=== PATIENT | male | born 1930 | race Caucasian/White ===

== ENCOUNTER → 2017-02-16 | Outpatient (CLI) | payer MEDICARE ==
--- NOTE | 2017-02-16 12:40 | XR ---
EXAMINATION TYPE: XR chest 2V DATE OF EXAM: 02/16/2017 9:59 AM COMPARISON: NONE HISTORY: Shortness of breath TECHNIQUE: Frontal and lateral views of the chest are obtained. FINDINGS: Scattered senescent parenchymal changes noted. Hyperinflation compatible with COPD. No evidence for infiltrate. No evidence for atelectasis. Heart size is stable. Mediastinal structures are stable and grossly unremarkable. No evidence for hilar prominence. Degenerative changes dorsal spine. IMPRESSION: 1. No evidence for acute pulmonary disease.
== END ==
LOC: RADXRMAIN 09:44
PROVIDERS: ATTEND Physician Assistant
DX: B34.9 Viral infection, unspecified (principal)
CPT/HCPCS: 71020

== ENCOUNTER → 2017-02-28 | Outpatient (CLI) | payer MEDICARE ==
--- NOTE | 2017-02-28 10:49 | XR ---
EXAMINATION TYPE: XR chest 2V DATE OF EXAM: 02/28/2017 10:42 AM COMPARISON: 02/16/2017 TECHNIQUE: PA and lateral views submitted. HISTORY: Cough and congestion FINDINGS: The lungs are clear and there is no pneumothorax, pleural effusion, or focal pneumonia. Arthropathy of the left shoulder and postsurgical change right shoulder. Hyperinflation suggests COPD. Linear ch anges at the lung bases suggestive of scar or atelectasis. IMPRESSION: 1. No acute process.
== END | disposition home or self-care (01) ==
LOC: RADXRMAIN 10:24
PROVIDERS: ATTEND Physician Assistant
DX: J20.9 Acute bronchitis, unspecified (principal)
CPT/HCPCS: 71020

== ENCOUNTER → 2017-05-23 | Outpatient (CLI) | payer MEDICARE ==
--- NOTE | 2017-05-23 12:14 | FL ---
EXAMINATION: Cervical and Thoracic Esophagram DATE OF EXAM: 05/23/2017 CLINICAL INDICATION: 86-year-old male with a dysphagia, trouble swallowing at night when supine. Hist ory of acid reflux. COMPARISON: None Total Fluoroscopy Time: 2 minutes 30 seconds Total images: 49 FINDINGS: Multilevel spondylitic change within the cervical spine with grade 1 anterolistheses at C3-C4 and C5- C6 and nearly grade 2 anterolisthesis at C4-C5. Towards the end of the study when the cervical esophagus is again examined, mild aspiration is eviden t with contrast layering along the anterior tracheal wall just below the vocal folds. This is suspect ed to have occurred when the patient was drinking prone. Otherwise, the swallowing mechanism is normal and hypopharyngeal anatomy is preserved. The cervical and thoracic portions have a normal course and caliber. However, assessment of motility shows moderate tertiary peristaltic contractions and blunting secondary peristaltic waves. The mucosa is normal and no persistent filling defect is encountered. There is no fixed narrowing. There is a moderate-sized hiatal hernia with moderate gastroesophageal reflux to the midthoracic leve l when the patient performs self outlining the supine position. IMPRESSION: 1. Mild aspiration suspected to have occurred when the patient was drinking in the prone position. If indicated, speech pathology consultation with a modified swallow study could further evaluate the sw allowing mechanism. 2. Presbyesophagus. 3. Moderate-sized hiatal hernia and moderate gastroesophageal reflux. 4. No evidence stricture or suspicious mucosal lesion. 5. Multilevel spondylotic change within the cervical spine with multilevel anterolistheses, nearly gr marilu 2 at C4-C5.
== END ==
LOC: RADFLWHC 10:41
PROVIDERS: ATTEND Otolaryngology
DX: K22.8 Other specified diseases of esophagus (principal); K44.9 Diaphragmatic hernia without obstruction or gangrene; K21.9 Gastro-esophageal reflux disease without esophagitis
CPT/HCPCS: 74220

== ENCOUNTER 2017-07-27 10:59 | Day surgery (SDC) | payer MEDICARE ==
[2017-07-26 11:17] VITALS: BMI 27.9
[~2017-07-27 10:59] MED LIST: LACTATED RINGERS 1,000 ML IV SCH
[2017-07-27] MEDS ORDERED: LIDOCAINE 1% 20 ML VIAL (10MG/ML) FOR IV START INTRADERMA ONE (12:57)
[2017-07-27 13:02] LABS: Glucose,Whole Blood 89 mg/dL (75-99)
[2017-07-27] MEDS ORDERED: PROPOFOL 10 MG/ML 20 ML VIAL IV ONE (13:42)
--- NOTE | 2017-07-27 13:54 | P.PCN ---
Date of Procedure: 07/27/17 Preoperative Diagnosis: Postoperative Diagnosis: Procedure(s) Performed: BRIEF HISTORY: Patient is a 86-year-old, pleasant, white male, scheduled for an upper endoscopy as a part of evaluation of intermittent dysphagia that happens at night. He can't swallow his own saliva or secretions. He feels like his choking and wakes her from sleep. He denies any dysphagia with foods. He was evaluated by Dr. Jerry and nasal pharyngoscopy was normal. PROCEDURE PERFORMED: Esophagogastroduodenoscopy with biopsy PREOPERATIVE DIAGNOSIS: Intermittent dysphagia to solids IV sedation per anesthesia. PROCEDURE: After informed consent was obtained, the patient was brought into the endoscopy unit. IV sedation was administered by Anesthesia under continuous monitoring. Initially the Olympus GIF-140 video endoscope was inserted into the mouth. Esophagus intubated without any difficulty. It was gradually advanced into the stomach and duodenum and carefully examined. The bulb and the second part of the duodenum appeared normal. Along the duodenal sweep there was a 3 cm submucosal polyp identified and biopsies were done from this area and this the represents a lipoma as the pillow sign was positive. The scope at this time was withdrawn to the stomach, adequately insufflated with air, and upon careful examination, mucosa of the antrum, body, cardia and the fundus appeared normal. Small polyps were noted in the fundus of the stomach which were biopsied. The scope was then withdrawn into the esophagus. Small hiatal hernia noted. The GE junction was located at 36 cm from the incisors. The esophagus appeared normal. There were no erosions or ulcerations seen and the patient tolerated the procedure well. IMPRESSION: 1. Small hiatal hernia. 2. Normal-appearing esophagus with no evidence of esophagitis or esophageal stricture. 3. Small gastric polyps status post biopsy 4. 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 Status post biopsies RECOMMENDATIONS: The findings of this examination were discussed with the patient as well as his family. He was advised to continue with Prilosec 20 mg daily and follow antireflux measures. Implants: Indications for Procedure: Operative Findings: Description of Procedure:
[2017-07-27 14:17] VITALS: BP 114/58; PULSE 65; RESP 18
== END 2017-07-27 14:43 | disposition home or self-care (01) ==
LOC: ORWHC2ENDO 10:59
PROVIDERS: ATTEND Internal Medicine Gastroenterology
DX: K29.80 Duodenitis without bleeding (principal); K31.7 Polyp of stomach and duodenum; K29.50 Unspecified chronic gastritis without bleeding; K44.9 Diaphragmatic hernia without obstruction or gangrene; R13.10 Dysphagia, unspecified; I10 Essential (primary) hypertension; E78.5 Hyperlipidemia, unspecified; C90.00 Multiple myeloma not having achieved remission; M19.90 Unspecified osteoarthritis, unspecified site; K21.9 Gastro-esophageal reflux disease without esophagitis; Z79.891 Long term (current) use of opiate analgesic; Z79.52 Long term (current) use of systemic steroids; Z79.899 Other long term (current) drug therapy
CPT/HCPCS: 88305; 88342; 43239; J2704

== ENCOUNTER → 2018-03-07 | Outpatient (CLI) | payer MEDICARE ==
--- NOTE | 2018-03-07 15:35 | XR ---
Lumbar spine HISTORY: Low back pain 3 views of the lumbar spine No comparisons There is multilevel spondylosis. Levoscoliosis is centered at L3. Loss of disc height present at the intervertebral levels is accompanied by multilevel vacuum phenomenon. Sclerosis present in the reading instructor ior elements of the lumbar spine compatible with facet arthropathy. Minimal retrolisthesis grade 1 L2 -3, L1-2. Minimal anterolisthesis grade 1 L5-S1. The aorta is tortuous and calcified. The aorta may b e ectatic in the abdomen. IMPRESSION: Scoliosis, degenerative disc disease, facet arthropathy. Tortuous possibly ectatic aorta.
--- NOTE | 2018-03-07 15:36 | XR ---
Left hip HISTORY: Left leg pain 2 views of the left hip There is mild joint space loss present. Alignment and bone mineralization are maintained. No fracture or dislocation. IMPRESSION: Mild osteoarthritis suspected.
== END | disposition home or self-care (01) ==
LOC: RADXRMAIN 14:06
PROVIDERS: ATTEND Family Medicine
DX: M51.36 Other intervertebral disc degeneration, lumbar region (principal); M46.96 Unspecified inflammatory spondylopathy, lumbar region; M41.86 Other forms of scoliosis, lumbar region; M25.552 Pain in left hip
CPT/HCPCS: 72100; 73502

== ENCOUNTER → 2018-03-27 | Outpatient (CLI) | payer MEDICARE ==
--- NOTE | 2018-03-27 09:05 | MR ---
EXAMINATION TYPE: MR lumbar spine wo con DATE OF EXAM: 03/27/2018 8:51 AM COMPARISON: NONE HISTORY: Back pain Multiplanar, MultiSpin echo imaging of the lumbar spine was performed. L1-L2: There is moderate disc desiccation noted. Mild posterior disc bulge identified without herniat ion or protrusion. No evidence for central stenosis. Facet joint arthropathy with mild left foraminal encroachment. L2-L3: Severe disc desiccation noted. Circumferential disc bulge with encapsulating spur resulting in disc endplate complex. Grade 1 retrolisthesis of L2 on L3 of 4.3 mm. No evidence for central stenosi s or disc herniation. Facet joint arthropathy with the severe right foraminal encroachment and mild l eft foraminal encroachment. L3-L4: Severe disc desiccation. Circumferential disc bulge. Posterior disc endplate complex. Effaceme nt ventral thecal sac. Right lateral recess stenosis. No evidence for central stenosis. Severe right foraminal encroachment. L4-L5: Severe disc desiccation. Posterior disc endplate complex. Ventral spondylosis. Severe facet rani int arthropathy. Left lateral recess stenosis. No evidence for central stenosis. Foraminal encroachme nt bilaterally. L5-S1: Severe disc desiccation. Left paracentral disc protrusion resulting in left lateral recess abner nosis. Bilateral foraminal encroachment. Severe facet joint arthropathy. Grade 1 anterolisthesis of 2 mm L5 on S1. Lumbar segments are intact. Partial lumbarization of S1 with rudimentary S1-S2 disc. No paraspinal ma sses are identified. Conus medullaris has a normal appearance. Large renal cyst lower pole right kid layo. Distention of the urinary bladder with wall thickening suggested. Correlate clinically. IMPRESSION: 1. Multilevel degenerative disc disease and disc endplate complex with varying degrees of foraminal e ncroachment and lateral recess stenosis. See above.
== END | disposition home or self-care (01) ==
LOC: RADMRIMAIN 07:55
PROVIDERS: ATTEND Family Medicine
DX: M48.061 Spinal stenosis, lumbar region without neurogenic claudication (principal); M51.26 Other intervertebral disc displacement, lumbar region; M43.16 Spondylolisthesis, lumbar region; M51.36 Other intervertebral disc degeneration, lumbar region; M47.816 Spondylosis without myelopathy or radiculopathy, lumbar region; M46.86 Other specified inflammatory spondylopathies, lumbar region
CPT/HCPCS: 72148

== ENCOUNTER → 2018-04-06 | Outpatient (CLI) | payer MEDICARE ==
[2018-04-06 13:47] VITALS: BP 144/64; RESP 16
--- NOTE | 2018-04-06 14:05 | P.PAINPG ---
Subjective Progress Note Date: 04/06/18 Principal diagnosis: As a very pleasant 87-year-old gentleman who comes in today complaining of severe low back pain as well as pain that radiates into his left buttocks and leg. He has previously been seen by pain clinic in [place]. He underwent lumbar steroid injections there. It is been at least 2 years since he had his injections with does report there are quite helpful for him. He denies any bowel or bladder dysfunction. He denies any weakness or falling. He is currently enrolled in physical therapy. Objective - Vital Signs Vital signs: Vital Signs Temp Pulse Resp 16 04/06/18 13:35 BP 144/64 04/06/18 13:35 Pulse Ox Intake & Output 04/05/18 04/06/18 04/06/18 18:59 06:59 18:59 Weight 74.843 kg - Exam Gen: WDWN, AAOx3, NAD HEENT: NCAT, EOMI, hearing grossly normal Pulm: resp unlabored Abd: soft, NT, ND Neck: supple, trachea midline ROM in flexion lumbar spine: Normal ROM in extension lumbar spine: Decreased with lordotic curvature exaggeration Lumbar paravertebral tenderness: None Facet loading: Minimally positive bilaterally SI joint tenderness: None Hong's test: Negative Straight leg raise: Negative bilaterally Neuro: muscle strength lower extremities good strength in the lower extremities bilaterally. Normal reflexes at the patella and Achilles bilaterally. MRI of the lumbar spine dated 03/27/2018 reveals significant disc degeneration at L1-2 and L2-3, L3 4, L4 5, L5-S1. There is also a left paracentral disc protrusion at L5-S1 with lateral left recess stenosis. There is severe facet arthropathy at L5-S1. Severe facet arthropathy at L4 5. Severe right foraminal encroachment at L3 4. Assessment and Plan (1) Degenerative lumbar spinal stenosis Current Visit: Yes Status: Acute Code(s): M48.061 - SPINAL STENOSIS, LUMBAR REGION WITHOUT NEUROGENIC SARAY SNOMED Code(s): 514905639 PQRS Measure Charge Sheet Measure #130: Documentation of Current Meds in Medical Chart: Patient's medications documented in chart Measure #226: Tobacco Use: Screen & Cessation Intervention: Pt not a tobacco user Measure #111: Pneumonia Vaccination: Pneumococcal vaccine NOT administered or previously given Measure #47: Advance Care Plan: Advance care planning discussed & documented, pt chose/unable to give Measure #412: Opioid Treatment Agreement: No documentation of signed opioid treatment agreement Measure #408: Opioid Therapy Follow-up Evaluation: Patient had NO f/u eval minimum every 3 months during opioid therapy Measure #317: Preventitive Care & Scrn High Bld Press & F/U: Normal blood pressure, f/u not required Measure #128: Body Mass Index (BMI) Screening & Follow-up: BMI documented within normal parameters Measure #131: Pain Assessment & Follow-up: Pain positive & plan documented Measure #431: Unhealthy Alcohol Use Preventative Care & Scrn: Patient not identified as an unhealthy alcohol user PQRS Narrative: Smoking Status Former smoker Do You Want the Pneumonia No Vaccine AT THIS TIME? Blood Pressure 144/64 Pain Intensity [Left Hip] 5 Scale Used Numeric (1 - 10) Hx Alcohol Use (MH) No Home Medications: Ambulatory Orders Alendronate Sodium [Fosamax] 70 mg PO Q7D 07/26/17 Folic Acid 1 mg PO DAILY 07/26/17 Losartan Potassium [Cozaar] 100 mg PO DAILY 07/26/17 Lovastatin [Mevacor] 20 mg PO HS 07/26/17 Omeprazole [PriLOSEC] 40 mg PO DAILY 07/26/17 amLODIPine [Norvasc] 5 mg PO DAILY 07/26/17 predniSONE 5 mg PO DAILY 07/26/17 traMADol HCL [Ultram] 50 mg PO Q6HR PRN 07/26/17 Finasteride [Proscar] 5 mg PO DAILY 04/06/18 Controlled Substance Measures - Controlled Substance Measures Is patient prescribed a controlled substance at discharge?: No If prescribed controlled substance>3 days was MAPS reviewed?: No When asked, does pt state using other controlled substances?: No Vital Signs - Respirations Respiratory Rate: 16
== END | disposition home or self-care (01) ==
LOC: PNWHC3 13:05
PROVIDERS: ATTEND Pain Medicine Pain Medicine
DX: G89.29 Other chronic pain (principal); M54.5 Low back pain; M48.061 Spinal stenosis, lumbar region without neurogenic claudication; M51.36 Other intervertebral disc degeneration, lumbar region; Z87.891 Personal history of nicotine dependence; Z79.891 Long term (current) use of opiate analgesic; Z79.899 Other long term (current) drug therapy; Z79.52 Long term (current) use of systemic steroids
CPT/HCPCS: 99211

== ENCOUNTER 2018-07-06 07:12 | Day surgery (SDC) | payer MEDICARE ==
[2018-05-22 09:09] VITALS: BMI 25.8
[2018-07-06 07:38] VITALS: TEMP 98.4
[2018-07-06] MEDS ORDERED: LIDOCAINE 1% 20 ML VIAL (10MG/ML) FOR IV START INTRADERMA ONE (07:56)
--- NOTE | 2018-07-06 08:26 | P.PCN ---
Date of Procedure: 07/06/18 Procedure(s) Performed: PREOPERATIVE DIAGNOSIS: 1- Lumbar Degenerative Disc Diseases 2-Lumbar spondylosis with Facet arthropathy without myelopathy POSTOPERATIVE DIAGNOSIS: 1-Lumber Degenerative Disc Diseases 2-Lumbar spondylosis with Facet arthropathy without myelopathy PROCEDURE 1. Lumbar epidural steroid injection under fluoroscopic guidance at the L3-4 level. 2. Lumbar epidurogram. ANESTHESIA: Local with 1% lidocaine 3 ml and , moderate sedation with intravenous Versed 1 mg , EBL: Minimal PROCEDURE INDICATION: The patient with low back pain and radiculitis symptoms unresponsive to conservative treatment. Fluoroscopy was used to optimize visualization of the needle placement and to maximize safety. PROCEDURE DESCRIPTION / TECHNIQUE: The patient was seen and identified in the preoperative area. Risks, benefits , complications including but not limited to infections ,bleeding ,allergic reaction to the medications ,nerve damage and not complete pain releife , and alternatives were discussed with the patient. The patient agreed to proceed with the procedure and signed the consent. IV was started, and vital signs were stable. Patient was taken to the OR and time out was completed. The patient was placed in the prone position on procedure table and a pillow was placed under the abdomen to reduce lumbar lordosis. The lumbosacral area was prepped and draped in the usual sterile fashion.ere closely monitored during the procedure. Conscious sedation was used during the procedure to decrease patients anxiety. Vital signs was monitered during the entire procedure. Using anterior-posterior fluoroscopy, the L3-4 interlaminar space was identified and the skin over this site was marked and then infiltrated with 1% lidocaine subcutaneously. Subsequently, a 20-gauge Tuohy epidural needle was inserted and advanced toward the epidural space using the ``Loss of resistance technique and guided by AP and lateral fluoroscopy. The correct needle position in the epidural space was verified with the injection of 2 mL of the water soluble contrast dye Isovue 200 contrast and observing an excellent epidurogram with the epidural spread of the dye, after negative aspiration for blood and CSF and in the absence of paresthesias. Again after negative aspiration, a 6 ml mixture containing 40 mg Depo-Medrol, and 2 ml of preservative free Normal Saline, and 2 ml of preservative free lidocaine 1% solution was injected and a washout of epidurogram was seen. Needle was withdrawn intact, skin was cleansed, and bandages were applied. COMPLICATIONS: None DISPOSITION / PLANS: The patient was placed in a supine position and transferred to the recovery area in a stable condition for observation. There was no evidence of lower extremity motor or sensory deficit after the procedure. Patient was discharged from the recovery room after meeting discharge criteria. Home discharge instructions were given to the patient by the staff. The patient was reexamined prior to discharge. The patient will schedule a follow up in the clinic in 2-4 weeks.
[2018-07-06 08:28] LABS: Glucose,Whole Blood 95 mg/dL (75-99)
[2018-07-06 08:37] VITALS: BP 134/79; PULSE 64; RESP 18
--- NOTE | 2018-07-06 09:04 | FL ---
EXAMINATION TYPE: FL guided pain mgmt statistic DATE OF EXAM: 07/06/2018 HISTORY: Flouroscopy time 3 seconds of fluoroscopy provided. IMPRESSION: 1. Fluoroscopy time.
== END 2018-07-06 09:24 | disposition home or self-care (01) ==
LOC: ORPAIN 07:12
PROVIDERS: ATTEND Specialist
DX: M51.16 Intervertebral disc disorders with radiculopathy, lumbar region (principal); M47.26 Other spondylosis with radiculopathy, lumbar region; I10 Essential (primary) hypertension
CPT/HCPCS: 62323; J2250; J1030; Q9966